=== PATIENT | male | born 1990 | race Caucasian/White ===

== ENCOUNTER 2017-09-06 10:06 | Emergency (ER) | payer SELFPAY ==
[~2017-09-06] VITALS: Ht 177.8 cm; Wt 70.0 kg
[~2017-09-06 10:06] MED LIST: AMOXICILLIN500 MG PO; MOTRIN800 MG PO; NAPROSYN500 MG PO; NO HOME MEDS; ULTRAM50 M1 PO
[2017-09-06] MEDS ORDERED: CIPRODEX1 ML OT ×2 (10:34→10:35)
[2017-09-06 10:55] VITALS: BP 141/89
== END 2017-09-06 10:55 | disposition home or self-care (01) | DRG 156 ==
LOC: ED 10:06
DX: H60.91 Unspecified otitis externa, right ear (principal)

== ENCOUNTER 2021-10-02 05:40 | Emergency (ER) | payer SELFPAY ==
[~2021-10-02] VITALS: Ht 177.8 cm; Wt 82.0 kg
[~2021-10-02 05:40] MED LIST changes: +CIPRODEX1 ML OT
[2021-10-02] MEDS ORDERED: CORTISPORIN OTI10 M2 AD (06:09)
[2021-10-02 06:30] VITALS: BP 155/106
== END 2021-10-02 06:30 | disposition home or self-care (01) | DRG 156 ==
LOC: ED 05:40
DX: H60.91 Unspecified otitis externa, right ear (principal)

== ENCOUNTER 2022-06-02 20:50 | Emergency (ER) | payer SELFPAY ==
[~2022-06-02 20:50] MED LIST changes: +CORTISPORIN OTI10 M2 AD
[2022-06-03] MEDS ORDERED: BACTRIM DS1 TAB PO (00:32)
== END 2022-06-02 21:30 | disposition left against medical advice (07) | DRG 951 ==
LOC: ED 20:50 → LWOBS 21:30
DX: Z53.21 Procedure and treatment not carried out due to patient leaving prior to being seen by health care provider (principal)

== ENCOUNTER 2022-06-02 23:55 | Emergency (ER) | payer SELFPAY ==
[~2022-06-02] VITALS: Ht 177.8 cm; Wt 81.0 kg
[2022-06-03] VITALS: BP 158/101
[2022-06-03] MEDS ORDERED: BACTRIM DS1 TAB PO (00:32)
[2022-06-03 01:07] VITALS: BP 138/88
== END 2022-06-03 01:16 | disposition home or self-care (01) | DRG 607 ==
LOC: ED 23:55
DX: S90.822A Blister (nonthermal), left foot, initial encounter (principal); W26.9XXA Contact with unspecified sharp object(s), initial encounter

== ENCOUNTER 2023-03-04 02:47 | Emergency (ER) | payer SELFPAY ==
[~2023-03-04] VITALS: Ht 177.8 cm; Wt 91.0 kg
[~2023-03-04 02:47] MED LIST changes: +BACTRIM DS1 TAB PO
[2023-03-04 02:59] VITALS: BP 163/111
[2023-03-04 03:29] LABS: BASO% 0.3 % (0-3); HEMATOCRIT 46.6 % (39.0-50.0); HEMOGLOBIN 15.9 g/dl (14.0-18.0); IMMATURE GRANULOCYTES 0.3 % (0.0-5.0); LYMPH% 25.1 % (15-41); MEAN CELL VOLUME 92.8 fL CALC (80.0-100.0); MEAN CORPUSCULAR HGB 31.7 pG CALC (26.0-32.0); MEAN CORPUSCULAR HGB CONC 34.1 g/dL CAL (32.0-36.0); MONO% 11.8 % (2-13); NEUT# 5.03 thou/uL (1.82-7.42); NEUT% 57.5 % (42-76); RED BLOOD COUNT 5.02 mill/uL (4.70-6.10); RED CELL DISTRI WIDTH 11.5 % (11.5-15.5)
[2023-03-04 03:43] LABS: ALBUMIN 4.8 g/dL (3.2-5.0); ALKALINE PHOSPHATASE 99 u/l (38-126); AMYLASE 84 u/l (30-110); ANION GAP 10 (6-22 (CALC)); BILIRUBIN, TOTAL 0.5 mg/dL (0.2-1.3); BUN 14 mg/dL (9-20); BUN/CREATININE RATIO 14 (12-20 (CALC)); CARBON DIOXIDE 28 mmol/l (22-30); CHLORIDE 106 mmol/l (95-108); GFR FOR AFR.AMER. > 60 ML/MIN (>=60 (CALC)); GFR OTHER RACES > 60 ML/MIN (>=60 (CALC)); LIPASE 60 u/l (23-300); POTASSIUM 3.8 mmol/l (3.5-5.1); SGOT/AST 35 u/l (17-59); SODIUM 140 mmol/l (137-146)
[2023-03-04] MEDS ORDERED: CARAFATE PO (04:57)
[2023-03-04] MEDS ORDERED: PREVACID30 M1 PO (04:57)
[2023-03-04 05:06] VITALS: BP 136/97
[2023-03-04 05:15] VITALS: BP 130/83
[2023-03-04 05:21] VITALS: BP 130/83
== END 2023-03-04 05:29 | disposition home or self-care (01) | DRG 392 ==
LOC: ED 02:47
PROVIDERS: Emergency Medicine
DX: K29.70 Gastritis, unspecified, without bleeding (principal)
CPT/HCPCS: S0164